=== PATIENT | male | born 1995 | race Caucasian/White ===

== ENCOUNTER 2021-08-11 19:44 | Emergency (ER) | payer OTHER, SELFPAY ==
[2021-08-11 19:52] VITALS: BP 153/98; PULSE 104; RESP 16; TEMP 36.4; O2SAT 99
[2021-08-11] MEDS: ONDANSETRON INJ 4 MG/2 ML VIAL IV PUSH (20:31)
[2021-08-11] MEDS: KETOROLAC 30 MG/ML VIAL (*BKC) IV PUSH (20:33)
[2021-08-11] MEDS: SODIUM CHLORIDE 0.9% IV 1,000 ML 999 ML IV CONT (20:34)
--- NOTE | 2021-08-11 21:13 | ED.HEATRA ---
HPI - Head Injury General Chief complaint: Head Injury Stated complaint: head injury 2 days ago Time Seen by Provider: 08/11/21 20:04 History of Present Illness HPI Narrative: Patient is a 26-year-old male who presents ER with headache and nausea. Patient struck his head 2 days ago. Suffered laceration and had it repaired. He was evaluated at urgent care. Today he has been having headache and feeling little lightheaded. He is also been having persistent nausea. Worse with activity. With initial injury he did not lose consciousness. He did not have nausea or change in vision at that time. Patient is taken some ibuprofen without improvement today. Related Data Allergies Allergy/AdvReac Type Severity Reaction Status Date / Time No Known Allergies Allergy Verified 08/11/21 19:56 Review of Systems Review of Systems: All systems reviewed & are unremarkable except as noted in HPI and below Constitutional: Constitutional: Denies chills, Denies fatigue and Denies fever(s) Eyes: Eyes: Denies change in vision ENT: Denies nasal congestion and Denies sore throat Gastrointestinal: Gastrointestinal: Denies abdominal pain, Reports nausea and Denies vomiting Neurologic: Reports dizziness, Reports headache(s), Denies focal weakness and Denies numbness PMFSH Past Medical History Medical History (Updated 08/11/21 @ 21:21 by Cleve Eisenberg MD) SVT (supraventricular tachycardia) As a baby Surgical History Surgical History (Updated 08/11/21 @ 21:14 by Cleve Eisenberg MD) H/O cardiac radiofrequency ablation Social History Social History (Updated 08/11/21 @ 21:15 by Cleve Eisenberg MD) Smoking status: Never smoker Exam Narrative: GENERAL: Well-appearing, well-nourished, and in no acute distress. HEAD: Normocephalic, laceration with sutures lateral to the right eye. Old bruising at the periorbital region on the right. ENT: Mucous membranes moist. CHEST: Clear to auscultation. No respiratory distress. HEART: Regular rate and rhythm. Normal peripheral pulses. ABDOMEN: Soft, nontender, nondistended. EXTREMITIES: Normal range of motion. No edema. SKIN: Warm, dry, no rash. NEURO: Alert and oriented x3. PSYCH: Normal mood and affect. Course Course Emergency Course: Patient feels much better with fluids/Toradol/Zofran. Discharge home. Vital Signs Vital signs: Vital Signs Temperature 97.6 F 08/11/21 19:52 Pulse Rate 104 H 08/11/21 19:52 Respiratory Rate 16 08/11/21 19:52 Blood Pressure 153/98 H 08/11/21 19:52 Pulse Oximetry 99 08/11/21 19:52 Oxygen Delivery Room Air 08/11/21 19:52 Temperature 97.6 F 08/11/21 19:52 Pulse Rate 104 H 08/11/21 19:52 Respiratory Rate 16 08/11/21 19:52 Blood Pressure 153/98 H 08/11/21 19:52 Pulse Oximetry 99 08/11/21 19:52 Oxygen Delivery Room Air 08/11/21 19:52 Discharge Plan Discharge Clinical Impression: Closed head injury Patient Disposition: Home, Self-Care Condition: Stable Instructions: Concussion (ED) Additional Instructions: Return to the ER if you have fever over 100.4 ?F, you cannot keep down food or water, you have chest pain or shortness of breath, you have additional concerns. Prescriptions: New ondansetron 4 mg tablet,disintegrating 4 mg PO Q6H PRN (Reason: nausea and vomiting) Qty: 10 0RF Follow-up/Referrals: Anh Gould MD [Physician] - 1 Week PHYSICIAN,WAITRESS [Primary Care Provider] -
[2021-08-11 21:34] VITALS: BP 122/74; PULSE 74; RESP 16; TEMP 36.3; O2SAT 100
== END 2021-08-11 21:35 | disposition home or self-care (01) ==
PROVIDERS: Emergency Provider Emergency Medicine
DX: S09.90XA Unspecified injury of head, initial encounter (principal); W22.8XXA Striking against or struck by other objects, initial encounter
CPT/HCPCS: 96361; 96374; 96375; 99284; J1885; J2405; J7030